=== PATIENT | female | born 1950 | race Caucasian/White ===

== ENCOUNTER 2017-10-19 11:58 | Emergency (ER) | payer MEDICARE, OTHER ==
[~2017-10-19] VITALS: Ht 170.2 cm; Wt 72.7 kg
[2017-10-19 12:13] VITALS: TEMP 97.5
[2017-10-19] MEDS ORDERED: LOSARTAN/HCT TAB 50- (12:25)
[2017-10-19] MEDS ORDERED: PRAVACHOL10 MG PO (12:25)
[2017-10-19 12:30] LABS: BASO % 0.3 % (0.0-2.0); EOS % 0.1 % (0-4.0); GRAN # 10.6 (1.4-6.5); GRAN % 81.9 % (42.2-75.2); HEMATOCRIT 43.8 % (37.0-47.0); HEMOGLOBIN 14.7 g/dl (12.5-16.0); LYMPH # 1.7 (1.2-3.4); LYMPH % 13.2 % (20.0-51.0); MEAN CELL VOLUME 92 fl (80.0-100.0); MEAN CORPUSCULAR HEMOGLOBIN 31 pg (27.0-31.0); MEAN CORPUSCULAR HGB CONC 34 g/dl (33.0-37.0); MEAN PLATELET VOLUME 10.2 fl (7.4-10.4); MONO # 0.5 (0.1-0.6); MONO % 3.8 % (1.7-9.3); PLATELET COUNT 192 K/mm3 (130-400); RED BLOOD COUNT 4.78 M/mm3 (4.10-5.30); REDCELL DISTRIBUTION WIDTH-CV 12.8 % (11.5-14.5)
[2017-10-19 12:41] LABS: ALANINE AMINOTRANSFERASE 56 U/L (9-52); ALBUMIN 4.3 gm/dL (3.5-5.0); ALKALINE PHOSPHATASE 168 U/L (50-136); ANION GAP 8 mmol/L (7-16); AST,SGOT 34 U/L (15-37); BILIRUBIN,TOTAL 0.6 mg/dL (0.0-1.0); BLOOD UREA NITROGEN 13 mg/dL (7-17); CALCIUM 9.5 mg/dL (8.4-10.2); CARBON DIOXIDE 26 mmol/L (22-30); CHLORIDE 103 mmol/L (98-107); CREATININE, serum 0.68 mg/dL (0.52-1.25); GLUCOSE 104 mg/dL (74-106); LIPASE 88 U/L (23-300); MAGNESIUM 2.2 mg/dL (1.6-2.3); PHOSPHOROUS 3.4 mg/dL (2.5-4.5); POTASSIUM 3.9 mmol/L (3.4-5.0); SODIUM 138 mmol/L (137-145); TOTAL PROTEIN 7.5 gm/dL (6.4-8.2)
[2017-10-19 12:56] LABS: TROPONIN-I < 0.012 ng/mL (0.000-0.034)
[2017-10-19 16:05] LABS: COLLECTION METHOD CLEAN CATCH
[2017-10-19] MEDS ORDERED: VALIUM 5MG T5 MG/TAB PO (16:08)
[2017-10-19] MEDS ORDERED: PHENERGAN 25 TA25 MG PO (16:08)
[2017-10-19] MEDS ORDERED: ANTIVERT 25MG25 MG PO (16:08)
[2017-10-19 16:23] LABS: PH 7 (5-8); SQUAMOUS EPITHELIAL None Seen /hpf; URINE APPEARANCE Clear; URINE BACTERIA Rare /hpf; URINE BILIRUBIN Negative (NEGATIVE); URINE BLOOD Negative (NEGATIVE); URINE COLOR Straw; URINE GLUCOSE Negative (NEGATIVE); URINE KETONE Negative (NEGATIVE); URINE LEUKOCYTE ESTERASE Negative (NEGATIVE); URINE NITRATE Negative (NEGATIVE); URINE PROTEIN(semi-quant) Negative (NEGATIVE); URINE RBC 0-2 /hpf; URINE UROBILINOGEN Negative (NEGATIVE)
[2017-10-19 19:26] VITALS: BP 146/81; PULSE 78
== END 2017-10-19 19:28 | disposition home or self-care (01) ==
LOC: COL.ER 11:58
PROVIDERS: Emergency Medicine
DX: R42 Dizziness and giddiness (principal); I10 Essential (primary) hypertension; E78.5 Hyperlipidemia, unspecified
CPT/HCPCS: J2060; J2550; J7030

== ENCOUNTER → 2018-10-06 | Outpatient (CLI) | payer MEDICARE, OTHER ==
[~2018-10-06] MED LIST: ANTIVERT 25MG25 MG PO; LOSARTAN/HCT TAB 50-; PHENERGAN 25 TA25 MG PO; PRAVACHOL10 MG PO; VALIUM 5MG T5 MG/TAB PO
== END ==
LOC: MC.RAD 08:12
DX: Z12.31 Encounter for screening mammogram for malignant neoplasm of breast (principal)

== ENCOUNTER 2019-09-22 11:59 | Inpatient (IN) | payer MEDICARE, OTHER ==
[~2019-09-22] VITALS: Ht 170.2 cm; Wt 73.0 kg
[~2019-09-22 11:59] MED LIST changes: +COZAAR 25MG25 MG/TAB PO; -LOSARTAN/HCT TAB 50-
[2019-11-07] VITALS (11 sets, daily range): BP systolic 110–162; BP diastolic 64–89; PULSE 60–94; TEMP 97.5–98
[2019-11-07] MEDS ORDERED: XARELTO10 MG PO (05:46)
--- NOTE | 2019-11-07 11:34 | NUR ---
PT TO ROOM 331 PER BED WITH REPORT FROM NAVA LOPEZ. PT IS A/O X3, VSS, PT DENIES PAIN. PEDAL PULSES STRONG. DRESSING TO RIGHT KNEE CDI WITH OCCLUSIVE SIDRA WRAP OVER INCISION. SCDS PLACED BILATERALLY. IV TO PUMP.
--- NOTE | 2019-11-07 14:58 | NUR ---
Radiotelegraph Operator met with patient to discuss discharge planning. Patient lives in [place] with her , El (ph#[phone]). Patient sees Dr. Rodriguez for primary care and obtains medications from [facility] with no difficulties. Patient reports independence with ADLS and has a cane and walker at home as needed. Patient does not have Advance Directives set up and was not interested in doing so at this time. Patient plans to return home upon discharge with El providing transportation. SW to continue to follow as needed.
--- NOTE | 2019-11-07 19:08 | NUR ---
REPORT TO JATIN LOPEZ.
--- NOTE | 2019-11-07 22:54 | NUR ---
Pt doing well. Does have pain but we are controlling with norco. Alert and oriented with vss. Bulky dressing to right knee with ice pack. PRN pain medicine. Pt did ambulate in halls earlier this shift, about 200ft. did well. Denies needs at this time. Call light within reach, will continue to monitor
[2019-11-08 00:38] VITALS: BP 144/72; PULSE 84; TEMP 97.8
--- NOTE | 2019-11-08 04:15 | NUR ---
Pt resting in bed. Has had uneventful night. Call light within reach, will continue to monitor
--- NOTE | 2019-11-08 07:22 | NUR ---
Bedside report from JOHN Romo. Pt in bed sitting up for breakfast, reports upset stomach and not sleeping well, A&O, glasses in place, RLE wrapped with dorian and ice pack in place, elevated on pillow moved from lower leg to ankle. Call lt in reach.
[2019-11-08 08:30] VITALS: BP 143/68; PULSE 70; TEMP 97.6
--- NOTE | 2019-11-08 09:11 | NUR ---
Initial visit; Patient thanked Drying Machine Tender for looking in on her and expressed she is experiencing a lot of pain. She was offered Holy Communion yesterday following her surgical procedure and thanks Drying Machine Tender for making her aware of the continued availability of spiritual care at our hospital.
--- NOTE | 2019-11-08 09:37 | NUR ---
Requested CARRIE Mojica take pt's vitals, he states pt was with PT.
[2019-11-08 11:27] VITALS: BP 146/76; PULSE 76; TEMP 98.3
--- NOTE | 2019-11-08 12:05 | NUR ---
Per Leon, PT, he feels pt could discharge today from a PT standpoint, however, as discussed with HARRIS Moyer, the pt wants better management of her nausea and pain. Pt fabian kira better, giving zofran ODT now and plan for more pain med later.
[2019-11-08 17:07] VITALS: BP 148/90; PULSE 77; TEMP 97.9
--- NOTE | 2019-11-08 19:20 | NUR ---
Report to JOHN Ojeda. Pt requested not to wake her for report, as she had not slept well last night and was very tired. Respirations with ease.
--- NOTE | 2019-11-08 19:41 | NUR ---
Pt had more pain at supper time, pharmacy verified that Ultram tabs could be crushed, given with ice cream. Pt denied needing nausea med or pain med at 1825.
[2019-11-08 21:02] VITALS: BP 177/80; PULSE 91; TEMP 98.7
[2019-11-08 22:05] VITALS: BP 169/81
[2019-11-09 00:26] VITALS: BP 160/77; PULSE 100; TEMP 98.6
--- NOTE | 2019-11-09 03:55 | NUR ---
patient doing well tonight. c/o pain in R knee upon movement and when attempting to get out of bed is unsuccessful. prn ultram and kira given, patient wants [facility] per report of increasing nausea. aquacellt o R knee is CDI. INT to R FA patent and flushes easily. no further needs at this time. will continue to monitor.
[2019-11-09 04:49] VITALS: BP 151/76; PULSE 94; TEMP 98.1
[2019-11-09] MEDS ORDERED: OXYCODONE H5 MG/5 ML PO (06:46)
[2019-11-09] MEDS ORDERED: NORCOELIX PO (06:51)
[2019-11-09 08:06] VITALS: BP 154/89; PULSE 92; TEMP 98
--- NOTE | 2019-11-09 09:30 | NUR ---
PHYSICAL THERAPY REPORTING THAT PATIENT'S IS REFUSING TO WORK WITH PT OR EVEN DANGLE. WHEN NURSING ASKED PATIENT ABOUT THIS SHE SAID SHE DID NOT REFUSE. A DIFFERENT PHYSICAL THERAPIST CAME TO WORK WITH PATIENT AND AGAIN SHE STARTED SAYING "I JUST CAN'T DO THIS, ITS GOING TO HURT". "I FEEL LIKE YOUR MAKING ME DO THIS". PHYSICAL THERAPY EDUCATED PATIENT ABOUT WHY THE PREVIOUS PT REPORTED SHE REFUSED. PATIENT SEEMS VERY UNMOTIVATED TO DO ANY ACTIVITY AND JUST WANTS TO LAY AROUND. NURSING AND PT EDUCATED PATIENT ABOUT THE IMPORTANCE OF GETTING UP AND MOVING. PATIENT THEN ASKED IF PT WOULD HELP HER. PT THEN REMINDED HER SHE WANTS TO GO HOME TODAY AND WILL NEED TO BE ABLE TO DEMONSTRATE SHE CAN DO THIS AT HOME BY HERSELF. PATIENT NEEDING LOTS OF EDUCATION AND ENCOURAGMENT
[2019-11-09 11:32] VITALS: BP 140/72; PULSE 99; TEMP 97.6
--- NOTE | 2019-11-09 16:15 | NUR ---
PATIENT DISCHARGING HOME VIA WC TO PERSONAL VEHICLE WITH FAMILY. GAVE DISCHARGE INSTRUCTIONS, PRESCRIPTIONS & FOLLOW UP APT. ANSWERED QUESTIONS/CONCERNS. IV DC'D. PATIENT DISCHARGED.
== END 2019-11-09 16:15 | disposition home or self-care (01) | DRG 470 ==
LOC: JCC 11-07 05:15
PROVIDERS: ADMIT Orthopaedic Surgery
PROC: 0SRC0J9 Replacement of Right Knee Joint with Synthetic Substitute, Cemented, Open Approach (ICD-10-PCS; principal; 2019-11-07 07:30)
DX: M17.11 Unilateral primary osteoarthritis, right knee (principal); Z91.040 Latex allergy status; G89.18 Other acute postprocedural pain; R11.0 Nausea
CPT/HCPCS: A9284; C1776; J0690; J1100; J1885; J2250; J2405; J2704; J3010; J7042; J7120

== ENCOUNTER → 2020-10-24 | Outpatient (CLI) | payer MEDICARE, OTHER ==
[~2020-10-24] MED LIST changes: +NORCOELIX PO; +OXYCODONE H5 MG/5 ML PO; +XARELTO10 MG PO
== END ==
LOC: MC.RAD 10-17 14:00
DX: N63.11 Unspecified lump in the right breast, upper outer quadrant (principal); N64.89 Other specified disorders of breast

== ENCOUNTER → 2021-06-20 | Outpatient (CLI) | payer MEDICARE, OTHER ==
[2021-06-20] VITALS (14 sets, daily range): BP systolic 119–143; BP diastolic 58–94; PULSE 55–80; TEMP 98.1
[~2021-06-20] VITALS: Ht 170.2 cm; Wt 74.8 kg
[2021-06-20 09:23] LABS: PROTHROMBIN TIME 10.5 SECONDS (9.7-12.8)
--- NOTE | 2021-06-20 10:20 | NUR ---
TAKEN TO CT AND PLACED ON TABLE, MONITORING EQUIPMENT PLACED ON PT. SCANS STARTED
== END ==
LOC: COL.RAD 08:44
PROVIDERS: Internal Medicine Gastroenterology
DX: K75.81 Nonalcoholic steatohepatitis (NASH) (principal)

== ENCOUNTER → 2021-08-12 | Outpatient (CLI) | payer MEDICARE, OTHER | LOC: COL.RAD 07:53 | DX: K75.81 Nonalcoholic steatohepatitis (NASH) (principal); R93.5 Abnormal findings on diagnostic imaging of other abdominal regions, including retroperitoneum; R94.5 Abnormal results of liver function studies; R07.89 Other chest pain | CPT/HCPCS: Q9967 ==

== ENCOUNTER → 2022-02-17 | Outpatient (CLI) | payer MEDICARE, OTHER | LOC: MC.RAD 09:50 | DX: Z12.31 Encounter for screening mammogram for malignant neoplasm of breast (principal); N63.32 Unspecified lump in axillary tail of the left breast ==

== ENCOUNTER → 2022-03-03 | Outpatient (CLI) | payer MEDICARE, OTHER | LOC: MC.RAD 13:41 | DX: N63.21 Unspecified lump in the left breast, upper outer quadrant (principal) ==

== ENCOUNTER → 2022-03-05 | Outpatient (CLI) | payer MEDICARE, OTHER | LOC: MC.RAD 12:39 | DX: N63.20 Unspecified lump in the left breast, unspecified quadrant (principal); R92.8 Other abnormal and inconclusive findings on diagnostic imaging of breast ==

== ENCOUNTER → 2022-03-30 | Outpatient (CLI) | payer MEDICARE, OTHER ==
[~2022-03-30] MED LIST changes: +HYZAAR 50-12.1 UDTAB PO; +NORCO 325 MG-51 TAB PO
== END ==
LOC: MC.RAD 13:39
DX: C50.412 Malignant neoplasm of upper-outer quadrant of left female breast (principal)
CPT/HCPCS: 32604; A9520

== ENCOUNTER 2022-03-31 06:24 | Day surgery (SDC) | payer MEDICARE, OTHER ==
[~2022-03-31] VITALS: Ht 170.2 cm; Wt 72.4 kg
[2022-03-31] VITALS (8 sets, daily range): BP systolic 105–137; BP diastolic 65–86; PULSE 66–96; TEMP 97.2–97.8
[~2022-03-31 06:24] MED LIST changes: -HYZAAR 50-12.1 UDTAB PO; -NORCO 325 MG-51 TAB PO
[2022-03-31] MEDS ORDERED: HYZAAR 50-12.1 UDTAB PO (07:51)
[2022-03-31] MEDS ORDERED: NORCO 325 MG-51 TAB PO (10:52)
--- NOTE | 2022-03-31 11:30 | NUR ---
PT TO BAY 1 PER CART FROM PACU. VS OBTAINED. RECEIVED REPORT. PT DENIES ANY NEEDS AT THIS TIME.
--- NOTE | 2022-03-31 12:50 | NUR ---
PT TOLERATING SALTINES AND SPRITE.
--- NOTE | 2022-03-31 14:00 | NUR ---
PT UP TO VOIDED WITHOUT DIFFICULTY.
--- NOTE | 2022-03-31 15:10 | NUR ---
DISCHARGE EDUCATION COMPLETED WITH PT. VERBALIZED UNDERSTANDING OF HOME AND FOLLOW UP CARE. ALL QUESTIONS ANSWERED. DISCHARGE PAPERWORK GIVEN TO PT.
--- NOTE | 2022-03-31 15:40 | NUR ---
PT OFF UNIT PER WHEELCHAIR. PT DISCHARGE TO HOME WITH FAMILY PER PERSONAL VEHICLE.
== END 2022-03-31 15:40 | disposition home or self-care (01) ==
LOC: SDCO 06:24
DX: C50.412 Malignant neoplasm of upper-outer quadrant of left female breast (principal); Z17.0 Estrogen receptor positive status [ER+]; Z79.899 Other long term (current) drug therapy; Z86.16 Personal history of COVID-19
CPT/HCPCS: A4648; J0690; J1100; J2250; J2405; J2704; J2795; J3010; J7120

== ENCOUNTER 2022-03-31 21:39 | Observation (INO) | payer MEDICARE, OTHER ==
[~2022-03-31] VITALS: Ht 170.2 cm; Wt 75.5 kg
[~2022-03-31 21:39] MED LIST changes: +HYZAAR 50-12.1 UDTAB PO; +NORCO 325 MG-51 TAB PO
[2022-03-31 22:10] LABS: HEMATOCRIT 40.4 % (37.0-47.0); HEMOGLOBIN 13.6 g/dl (12.5-16.0); MEAN CELL VOLUME 89 fl (80.0-100.0); MEAN CORPUSCULAR HEMOGLOBIN 30 pg (27-31); MEAN CORPUSCULAR HGB CONC 34 g/dl (33.0-37.0); MEAN PLATELET VOLUME 10.4 fl (7.4-10.4); PLATELET COUNT 265 K/mm3 (130-400); RED BLOOD COUNT 4.53 M/mm3 (4.10-5.30)
[2022-03-31 22:26] LABS: CALCIUM 9.3 mg/dL (8.4-10.2); CREATININE, serum 1.16 mg/dL (0.57-1.11); POTASSIUM 3.5 mmol/L (3.5-4.5)
[2022-04-01] VITALS (10 sets, daily range): BP systolic 108–178; BP diastolic 57–78; PULSE 75–85; TEMP 96.8–98
--- NOTE | 2022-04-01 01:30 | NUR ---
Pt. arrived to the floor at 0115. Pt. is A&OX3, assessment complete. IV to rt. ac patent. Pt. denies pain or other needs, vss.
[2022-04-01 06:30] LABS: BASO % 0.2 % (0.0-2.0); GRAN # 15.9 K/mm3 (1.4-6.5); GRAN % 89.2 % (42.2-75.2); LYMPH # 1.4 K/mm3 (1.2-3.4); MEAN CELL VOLUME 92 fl (80.0-100.0); MEAN CORPUSCULAR HGB CONC 33 g/dl (33.0-37.0); MEAN PLATELET VOLUME 10.9 fl (7.4-10.4); MONO # 0.4 K/mm3 (0.1-0.6); PLATELET COUNT 189 K/mm3 (130-400); REDCELL DISTRIBUTION WIDTH-CV 13.2 % (11.5-14.5)
[2022-04-01 06:37] LABS: HEMATOCRIT 34.2 % (37.0-47.0); HEMOGLOBIN 11.1 g/dl (12.5-16.0); MEAN CORPUSCULAR HEMOGLOBIN 30 pg (27-31)
[2022-04-01 06:49] LABS: CALCIUM 8.6 mg/dL (8.4-10.2); CREATININE, serum 0.87 mg/dL (0.57-1.11); POTASSIUM 3.9 mmol/L (3.5-4.5)
--- NOTE | 2022-04-01 09:27 | NUR ---
Initial visit; Patient very nice and thanked Screen Stretcher for stopping and offering God's blessings. She states she will be going home today.
--- NOTE | 2022-04-01 11:00 | NUR ---
PT RESTING IN BED. DISCHARGE ORDERS RECIEVED. INCISION TO LEFT CHEST CDI WITH NO DRESSING IN PLACE CURRENTLY. WILL REPLACE SIDRA WRAP FOR PT COMFORT.
--- NOTE | 2022-04-01 11:29 | NUR ---
Auto Hiker met with patient to discuss discharge planning. Patient states she gets to go home today. Patient lives in [place] with her significant other of 33 years, El (ph#[phone]). Patient sees Dr. Rodriguez for primary care and obtains medications from [facility] with no difficulties. Patient does not use any DME and is independent with ADLS. Patient does not have Advance Directives and states this is something she plans on completing after discharge. SW offered patient a DPOA-HC form, however she declined. Discharge Plan: Home
--- NOTE | 2022-04-01 14:43 | NUR ---
REVIEWED DISCHARGE INSTRUCTIONS WITH PT AND FAMILY. QUESTIONS ANSWERED. PT LEFT UNIT BY WHEEL CHAIR.
== END 2022-04-01 14:44 | disposition home or self-care (01) ==
LOC: COL.ER 21:39 → SURG 22:45 → COL.ER 23:32 → SURG 04-01 14:44
PROVIDERS: Emergency Medicine; ADMIT Surgery
DX: L76.32 Postprocedural hematoma of skin and subcutaneous tissue following other procedure (principal)
CPT/HCPCS: G0378; J0690; J1100; J1885; J2370; J2405; J2704; J3010; J7120

== ENCOUNTER 2022-05-15 09:16 | Day surgery (SDC) | payer MEDICARE, OTHER ==
[~2022-05-15] VITALS: Ht 170.2 cm; Wt 73.0 kg
[2022-05-15 10:30] VITALS: BP 142/100; PULSE 77; TEMP 97.7
[2022-05-15 12:55] VITALS: BP 100/74; PULSE 71; TEMP 97.4
--- NOTE | 2022-05-15 12:55 | NUR ---
1255: Patient arrived back into bay 1 from OR. Patient is alert and awake. Vital signs stable on room air. Report received from JOHN Mosley and CHASITY Sears. Patient questing water and applesauce and wants to rest at this time. Patient denies nausea and pain. Call light left within reach.
--- NOTE | 2022-05-15 12:55 | NUR ---
PT TO BAY 6 PER CART FROM PACU. RECEIVED REPORT. VS DONE. PT REQUESTS TO SLEEP AND DENIES ANY ADDITIONAL NEEDS AT THIS TIME.
[2022-05-15 13:10] VITALS: BP 107/67; PULSE 66
[2022-05-15 13:25] VITALS: BP 114/51; PULSE 68
[2022-05-15 13:40] VITALS: BP 131/60; PULSE 58
--- NOTE | 2022-05-15 14:30 | NUR ---
1310-PT TOLERATING APPLESAUCE, WATER, AND MUFFIN. 1400-IV DC'D. PT TOLERATED WELL. 1405-DISCHARGE EDUCATION COMPLETED WITH PT. VERBALIZED UNDERSTANDING OF HOME AND FOLLOW UP CARE. ALL QUESTIONS ANSWERED. DISCHARGE PAPERWORK GIVEN TO PT. PT UP TO BATHROOM AND VOIDED WITHOUT DIFFICULTY. 1430-PT OFF UNIT PER WHEELCHAIR. PT DISCHARGED TO HOME WITH DAUGHTER PER PERSONAL VEHICLE.
== END 2022-05-15 14:30 | disposition home or self-care (01) ==
LOC: SDCO 09:16
DX: C50.412 Malignant neoplasm of upper-outer quadrant of left female breast (principal)
CPT/HCPCS: C1788; J0690; J1644; J2704; J7120

== ENCOUNTER → 2024-05-30 | Outpatient (CLI) | payer MEDICARE, OTHER ==
[~2024-05-30] MED LIST changes: +ARIMIDEX1 MG PO
== END ==
LOC: MC.RAD 08:04
DX: Z12.31 Encounter for screening mammogram for malignant neoplasm of breast (principal)